=== PATIENT | female | born 1960 | race Two or more races ===

== ENCOUNTER 2025-04-03 14:03 | Outpatient (REF) | payer MEDICARE, MEDICAID, SELFPAY ==
[2025-04-03 15:25] LABS: ABG Refer to POC result
[2025-04-03 15:56] LABS: ABG HCO3 34 mmol/L (22-26); ABG O2 % Saturation 97.0 %
== END 2025-04-03 14:04 | disposition home or self-care (01) ==
LOC: HO.LAB 14:03
PROVIDERS: PCP Family Medicine; Visit Provider Hospitalist
DX: J96.12 Chronic respiratory failure with hypercapnia (principal); J44.9 Chronic obstructive pulmonary disease, unspecified; G47.33 Obstructive sleep apnea (adult) (pediatric); J98.4 Other disorders of lung; G60.0 Hereditary motor and sensory neuropathy
CPT/HCPCS: 82803; 99212

== ENCOUNTER 2025-04-03 14:03 | Outpatient (AMB) | payer MEDICARE, MEDICAID, SELFPAY ==
[2025-04-03 14:07] VITALS: BP 130/60; PULSE 92; O2SAT 96
--- NOTE | 2025-04-03 14:07 | MHC.OFFVIS ---
Vital Signs 04/03/25 14:07 Height 4 ft 11 in BMI Reason not done Patient refused/unable BP 130/60 Blood Pressure Location Lt brachial Position Sitting Pulse 92 Pulse Source Pulse Oximeter Pulse Oximetry (%) 96 Oxygen Delivery Method Room Air Intake Visit Reasons: Sleep apnea Accompanied by: Spouse Allergies sulfamethoxazole (From Bactrim) Adverse Reaction (Severe, Verified 04/03/25 14:10) Hives trimethoprim (From Bactrim) Adverse Reaction (Severe, Verified 04/03/25 14:10) Hives HPI Comments Details: The patient is a 64 year woman with a known history of charcot eda tooth muscular dystrophy in addition to obstructive sleep apnea. The patient had been developing significant daytime drowsiness. She had undergoing a sleep study demonstrating significant sleep apnea back in 2006. she has been placed on BiPAP with O2. The BiPAP therapy has been affecting beneficial for many years. The patient however has been describing worsening shortness of breath while awake. her shortness of breath is worse when she is laying flat. Currently she is wheelchair-bound due to her significant muscular dystrophy. She feels that the last couple years she has noticed further weakness of her upper and lower extremities. Again, she does depend on a wheelchair and now even to eat in for other activities of daily living she needs help of her . She had been evaluated by Neurology but she no longer is followed by Neurology this time. It is important for her to be evaluated and also should be evaluated by occupational therapy as well to help her with her limitations. In the meantime the patient also has worsening respiratory symptoms. Will go ahead and check her pulmonary function studies in addition to her venous blood gas. My suspicion is that with her progressive neuromuscular disease she may be developing further restrictive lung disease and therefore respiratory failure. If the patient does have elevations in her CO2 and significant decrease in therefore vital capacity which I suspect she will be a good candidate ventilator. 03/14/2024 the patient is here for a pulmonary follow-up visit. Overall she is doing okay. She does have significant restrictive lung disease due to her Charcot Eda tooth muscular dystrophy. She is currently wheelchair-bound. She has been using the BiPAP at nighttime. We did do a blood gas while on the BiPAP and his CO2 still elevated at 50 mmHg. In addition to that the patient did have pulmonary function studies and had a forced vital capacity of about 30% and has significantly limited inspiratory and expiratory maximum inspiratory pressures. Therefore, the patient does have significant disease with evidence of chronic hypercarbic respiratory failure. At this point will go ahead and switch her BiPAP to a noninvasive ventilator. This will help her with better gas exchange. Could also provide her with a mouthpiece that she can use during the daytime when she has her wheelchair to provide rescue breaths during the day as well. We have been trying to help her getting to a neurologist. The patient had been seen a local neurologist in the past Dr. Amaro, but since he tired. Hopefully we can set her up with [facility] neurology. The patient had been evaluated in [place] as well. Although transportation is an issue. The patient is still having some difficulty sleeping. She has significant pain at nighttime. She will try small dose of gabapentin. She also takes Cymbalta we have to make sure to give her small dose. She can titrate from 100 mg 200 mg. 10/07/2024 the patient is here for a pulmonary follow-up visit. Overall the patient has been doing fair. She has been complaining of some right-sided chest discomfort primarily on the lower part. Does radiate to the front. She already had her gallbladder taken out. She does have a pleuritic component. He is also tender to the touch. She does get vesicles sometimes but no obvious shingles that she is describing. In addition to that she has been using her ventilator. The ventilator has been affecting beneficial. I did downloaded. She has been using it every night. Her AHI is down to 0.4. The patient is trying to get used to the mask she has significant air leakage. She needs to try fullface mask. She did get 1 and she is going to start using more regularly. In addition to that the patient finally got some records from her neurologist. Therefore put a referral again for to see [facility] Neurology. In addition to that she was having some chest discomfort over the fall and she did have an EKG that was abnormal. Therefore will for for her to Cardiology as well to further evaluate those findings. The patient has been complaining of a weak cough. Difficult for her to expectorate. She is also worried about it because she has a hard time clearing any secretions. She did cough in the office and his extremely weak. She is really not able to mount a significant cough. She needs assistance in therefore will go ahead and order a cough assist device for her to be a clear secretions. In this way she can use it as a chest physical therapy on a daily basis and then increase it or increase the frequency when she gets congested. 04/03/2025 the patient is here for pulmonary follow-up visit. Overall the patient has been doing okay. She does have dyspnea during the daytime. She does rely on her wheelchair all the time. She does use the noninvasive ventilator at nighttime and also when she takes a nap. The patient has also been using the cough assist with good effect. Overall that is overall stable. Although she still complains of shortness of breath when she is not using the machine. Her pulse ox is normal. Does not need oxygen although she has increased work of breathing. We did give her an incentive spirometer she was only able to bring up the spirometer up to about 400 cc. Therefore very limited. We did talk about a mouthpiece for her astral that she can use when outside of the home for a rescue breath. Will go ahead and set her up with that right now we are going to requested from [facility]. Operative will set it up and then adjusted accordingly to make sure she can not tolerated specially when she starts to need it more often. The patient also w she is going to be trying to ill benefit from a nebulizer. Will provide her a nebulizer with albuterol in order for her to provide bronchodilation at least once a day to see if this provides some relief as well. She will continue with the current respiratory therapy. Will have her get pulmonary function studies with inspiratory and expiratory pressure measurements and also have her get a blood gas. Patient follow-up in 4-6 months if she has any issues prior to this she will call for an earlier assessment. [facility] Medical History (Updated 11/14/24 @ 09:22 by Brionna Garcia) Abnormal EKG Chronic hypercapnic respiratory failure JOHN treated with BiPAP Chronic restrictive lung disease Charcot Eda Tooth muscular atrophy Dyspnea Social History Patient Tobacco Use Status: Never used Tobacco Review of Systems Const Reports daytime sleepiness and Reports weakness Eyes Reports no additional complaints ENT Reports nasal congestion Card Denies chest pain, Reports dyspnea and Reports dyspnea on exertion Resp Reports cough, Reports dyspnea, Reports dyspnea on exertion and Denies wheezing GI Reports no additional complaints Musc Reports abnormal gait and Reports muscle weakness Skin/Breast Denies rash Neuro Reports Neuro-related abnormal movements, Reports abnormal gait and Reports weakness Kenji/Lymph Reports no additional complaints Aller/Immun Denies wheezing Physical Exam Vital Signs: Last Vital Signs Pulse 92 04/03/25 14:07 BP 130/60 04/03/25 14:07 Pulse Ox 96 04/03/25 14:07 Oxygen Delivery Method Room Air 04/03/25 14:07 Const General: comfortable Limitations: wheelchair HEENT Head: Yes normocephalic Neck Neck: Yes supple Resp Effort & Inspection: normal respiratory effort Auscultation: no rales, no rhonchi, no wheezes and diminished lung sounds Cardio Heart sounds: S1 normal heart sound present and S2 normal heart sound present GI Palpation (GI): Soft to palpation Skin General skin exam: no rashes or lesions noted Extrem General: No clubbing and No cyanosis Assessment & Plan Assessment & Plan (1) Chronic hypercapnic respiratory failure: Code(s): J96.12 - Chronic respiratory failure with hypercapnia Category: Medical (2) Chronic restrictive lung disease: Code(s): J98.4 - Other disorders of lung Category: Medical (3) Charcot Eda Tooth muscular atrophy: Code(s): 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 failed BIPAP with O2, elevated PCO2 and FVC 30%. Needs to use FM. Will request mouth piece to use during the day start Nebulizer therapy with levalbuterol BID PPI gabapentin at night [facility] neurology referral Cardiology referral Needs a cough assist device Bloodwork: ABG PFTs with max inspiratory/expiratory pressures F/U 4 months Orders: Orders PFT pulmonary function test 04/03/25 J96.12 - Chronic respiratory failure with hypercapnia ABG 04/03/25 J96.12 - Chronic respiratory failure with hypercapnia Medications: New levalbuterol HCl 1.25 mg (3 mL) inhalation BID 180 mL 0RF 30 days J44.9 - Chronic obstructive pulmonary disease, unspecified Coding Level of Care Code Est Pt Level 4 (12800) Complex EM visit Add On G2211 Diagnoses Chronic hypercapnic respiratory failure J96.12 Chronic restrictive lung disease J98.4 Charcot Eda Tooth muscular atrophy G60.0 Shortness of breath R06.02 Dyspnea type: shortness of breath JOHN treated with BiPAP G47.33 Time Spent (min) 18
--- OUTSIDE RECORDS SUMMARY | 2025-04-03 15:08 | XMS_ITS ---
Author Name [facility] Organization Unknown Care Team Organization Name Specialty Phone Email Start Date End [facility] 02/25/2025
== END 2025-04-03 14:32 | disposition home or self-care (01) ==
LOC: HO.HPS 14:04
PROVIDERS: PCP Family Medicine; Visit Provider Hospitalist
DX: J96.12 Chronic respiratory failure with hypercapnia (principal); J98.4 Other disorders of lung; G60.0 Hereditary motor and sensory neuropathy; R06.02 Shortness of breath; G47.33 Obstructive sleep apnea (adult) (pediatric)
CPT/HCPCS: 99214; G2211

== ENCOUNTER 2025-05-07 12:33 | Outpatient (AMB) | payer MEDICARE, MEDICAID, SELFPAY ==
--- NOTE | 2025-05-07 12:46 | A.OFFVIS_ITS ---
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 Helper: Dividing Machine Operator Helper Present Accompanied by: Spouse Allergies sulfamethoxazole (From Bactrim) Adverse Reaction (Severe, Verified 04/03/25 14:10) Hives trimethoprim (From Bactrim) Adverse Reaction (Severe, Verified 04/03/25 14:10) Hives Medication List - Last Reconciled 05/07/25 by Sohail Zepeda MD baclofen 10 mg PO TID 30 days CPAP (CPAP Machine/Device) As directed duloxetine (Cymbalta) 20 mg PO BID levalbuterol HCl 1.25 mg (3 mL) inhalation BID 90 days omeprazole 40 mg PO DAILY Oxygen Home Use As directed simvastatin 20 mg PO DAILY HPI Comments Details: Lori was referred here for abnormal EKGs that was done last year which was suggestive of poor R-wave progression and possible anterior myocardial infarction. She has prior history of Janae Lynn Tooth muscular atrophy syndrome along with the obesity as well as chronic respiratory failure requiring BiPAP therapy. She has no cardiovascular symptoms. She comes in today for that abnormal EKGs evaluation. No testing was performed. EKGs done in the office today shows normal sinus rhythm normal EKGs. Most likely EKGs abnormality due to lead placement. [facility] Medical History Hx of tonsillitis Abnormal EKG Chronic hypercapnic respiratory failure JOHN treated with BiPAP Chronic restrictive lung disease Charcot Eda Tooth muscular atrophy Dyspnea Surgical History History of surgery on lower extremity Family History Father Diabetes Mother Diabetes Social History Patient Tobacco Use Status: Never used Tobacco Review of Systems Const Denies chills, Denies daytime sleepiness, Denies fatigue, Denies fever(s), Denies frequent falls, Denies poor appetite, Denies snoring, Denies stops breathing during sleep, Denies weakness, Denies weight gain and Denies weight loss Eyes Denies loss of vision ENT Denies dizziness and Denies hearing loss Card Denies chest pain, Denies claudication, Denies leg edema, Denies lightheadedness, Denies palpitations, Reports dyspnea, Reports dyspnea on exertion and Reports orthopnea Resp Denies cough, Denies excessive phlegm production, Reports dyspnea, Reports dyspnea on exertion, Denies snoring and Denies wheezing GI Denies abdominal pain, Denies hematochezia, Denies change in bowel habits, Denies nausea and Denies vomiting Denies urinary frequency and Denies dysuria Musc Denies arthralgias, Denies muscle weakness and Denies numbness Skin/Breast Denies nail changes and Denies rash Neuro Denies Abnormal speech present, Denies dizziness, Denies frequent falls, Denies loss of vision, Denies memory loss, Denies numbness and Denies weakness Psych Denies depression and Denies memory loss Endo Denies fatigue and Denies palpitations Kenji/Lymph Reports easy bruising and Reports other (anemia) Aller/Immun Denies wheezing Physical Exam Vital Signs: Last Vital Signs Pulse 75 05/07/25 12:47 BP 116/64 05/07/25 12:47 Const General: cooperative, comfortable, no acute distress, alert and awake Nutritional Appearance: obese Orientation/consciousness: patient oriented x3 Limitations: wheelchair HEENT Head: Yes normocephalic and Yes atraumatic Neck Neck: Yes trachea midline, Yes supple and Yes no JVD Resp Effort & Inspection: normal respiratory effort Auscultation: no rales, no wheezes and diminished lung sounds Cardio Jugular venous distension: no JVD Rate: regular rate Rhythm: regular rhythm Heart sounds: S1 normal heart sound present, S2 normal heart sound present, no click, no gallops, no murmurs and no rubs GI Auscultation: normal bowel sounds Skin General skin exam: no rashes or lesions noted Neuro General: patient oriented x3 and no focal motor deficits Speech: No Abnormal speech present Extrem General: Yes no clubbing, cyanosis or edema Office Procedures EKG Details: EKG shows normal sinus rhythm with normal EKGs [id number], Complete Assessment & Plan Assessment & Plan (1) Abnormal EKG: Code(s): R94.31 - Abnormal electrocardiogram [ECG] [EKG] Category: Medical Plan: Patient does have a normal EKGs today. Abnormal EKGs done last year most likely due to lead placement and body habitus leading to lead displacement not u ncommon in women. Today's normal EKGs rules out any underlying structural heart disease. No further workup is indicated as patient is completely asymptomatic. Follow up with Pulmonary for her usual chronic respiratory failure. Continue therapy. Discussed with the patient about the same and she was quite happy to know about this Coding Level of Care Code New Pt Level 3 (44404) Complex EM visit Add On G2211 Diagnoses Abnormal EKG R94.31 CPT Codes EKG - CPT: 45901-[id number], Complete ([id number])
[2025-05-07 12:47] VITALS: BP 116/64; PULSE 75
== END 2025-05-07 13:08 | disposition home or self-care (01) ==
LOC: HO.HCS 12:34
PROVIDERS: PCP Family Medicine; Visit Provider Internal Medicine Cardiovascular Disease
DX: R94.31 Abnormal electrocardiogram [ECG] [EKG] (principal)
CPT/HCPCS: 93010; 99203; G2211

== ENCOUNTER → 2025-05-07 12:33 | Outpatient (BNVA) | payer MEDICARE, MEDICAID, SELFPAY | PROVIDERS: PCP Family Medicine; Visit Provider Internal Medicine Cardiovascular Disease | DX: R94.31 Abnormal electrocardiogram [ECG] [EKG] (principal) | CPT/HCPCS: 93005; 99202 ==